=== PATIENT | male | born 1995 | race Caucasian/White ===

== ENCOUNTER 2018-02-17 20:58 | Emergency (ER) | payer BC ==
[2018-02-17 21:15] VITALS: BP 131/66
--- NOTE | 2018-02-17 21:18 | ER Report ---
History and Physical Time Seen By MD: 21:19 Hx. of Stated Complaint: patient cut his finger while washing a knife. HPI/ROS CHIEF COMPLAINT: Laceration HISTORY OF PRESENT ILLNESS: This is a 22-year-old male who presents to the emergency department for a laceration. Patient states that about one hour prior to arrival he was cutting a piece of chicken with a sharp knife knife slipped and he lacerated the distal pad of his right index finger. Patient states he is unable to stop the bleeding there for definitive for further evaluation. No other injuries identified. Patient is otherwise healthy. No recent illnesses. Patient does think his tetanus is up-to-date. Allergies: Coded Allergies: No Known Drug Allergies (Unverified , 02/17/18) Home Meds No Active Prescriptions or Reported Meds Past Medical/Surgical History The patient has no significant past medical or surgical history. Reviewed Nurses Notes: Yes Constitutional Vital Sign - Last 24 Hours 02/17/18 21:15 Temp 98.8 Pulse 91 Resp 12 B/P (MAP) 131/66 Pulse Ox 93 O2 Delivery Room Air Physical Exam General appearance: Alert no distress. Respiratory: Chest is non tender, lungs are clear to auscultation. Cardiac: Regular rate and rhythm. Integumentary: Very small avulsion to the pad of the right index finger. Oozing blood. DIFFERENTIAL DIAGNOSIS: After history and physical exam differential diagnosis was considered for laceration. Medical Decision Making ED Course/Re-evaluation ED Course The patient was admitted to room. A history of the score obtained. Differential diagnoses were considered. After wound assessment did determine steroids nothing that was suturable as the flap that was a full is gone. The patient's wound was covered with Gelfoam and secured with a pressure bandage. Patient tolerated well. Patient was instructed to monitor for signs of infection, return to ER for any concerns or worsening symptoms. Patient's tetanus is current. No other questions or concerns at this time discharged home. Decision to Disposition Date: Feb 17, 2018 Decision to Disposition Time: 21:35 Depart Departure Latest Vital Signs Vital Signs Date Time Temp Pulse Resp B/P (MAP) Pulse Ox O2 Delivery O2 Flow Rate FiO2 02/17/18 21:15 98.8 91 12 131/66 93 Room Air Impression: Primary Impression: Avulsion of skin of index finger Condition: Improved Disposition: HOME OR SELF-CARE New Scripts No Active Prescriptions or Reported Meds Patient Instructions: Acute Wound Care (ED) Additional Instructions: Monitor for signs of infection such as redness, swelling and drainage. Keep the wound covered for the next 24-48 hours. After the 24-48 hours removed the bandage and gently wash the wound lead air dry and cover with a bandage. You may apply anabiotic ointment to the wound. Return to the emergency department for any other concerns or worsening symptoms. Problem Qualifiers Primary Impression: Avulsion of skin of index finger Encounter type: initial encounter Qualified Codes: S61.208A - Unspecified open wound of other finger without damage to nail, initial encounter JACK WOLFE CHILD DEVELOPMENT SPECIALIST-BC Feb 17, 2018 21:18
[2018-02-17] MEDS ORDERED: CELLULOSE HEMOSTAT 1 EACH PKT OP-SITE ONE (21:25)
== END 2018-02-17 21:36 | disposition home or self-care (01) ==
LOC: ER 21:33
DX: S61.208A Unspecified open wound of other finger without damage to nail, initial encounter (principal); W26.0XXA Contact with knife, initial encounter
CPT/HCPCS: 99282